=== PATIENT | male | born 1940 | race Two or more races ===

== ENCOUNTER 2020-09-01 07:23 | Outpatient (CLI) | payer OTHER | END 2020-09-01 07:46 | disposition home or self-care (01) | LOC: LAB 07:23 | DX: Z00.01 Encounter for general adult medical examination with abnormal findings (principal); Z68.31 Body mass index [BMI] 31.0-31.9, adult; Z11.3 Encounter for screening for infections with a predominantly sexual mode of transmission; Z11.4 Encounter for screening for human immunodeficiency virus [HIV]; Z12.11 Encounter for screening for malignant neoplasm of colon; Z12.5 Encounter for screening for malignant neoplasm of prostate; Z13.0 Encounter for screening for diseases of the blood and blood-forming organs and certain disorders involving the immune mechanism; Z13.1 Encounter for screening for diabetes mellitus; Z13.220 Encounter for screening for lipoid disorders; Z13.228 Encounter for screening for other metabolic disorders; Z13.29 Encounter for screening for other suspected endocrine disorder; E66.9 Obesity, unspecified; R03.0 Elevated blood-pressure reading, without diagnosis of hypertension; Z23 Encounter for immunization; R10.9 Unspecified abdominal pain; I10 Essential (primary) hypertension; E03.9 Hypothyroidism, unspecified; E55.9 Vitamin D deficiency, unspecified ==

== ENCOUNTER 2020-09-04 07:28 | Outpatient (CLI) | payer OTHER | END 2020-09-04 07:37 | disposition home or self-care (01) | LOC: LAB 07:28 | DX: Z00.01 Encounter for general adult medical examination with abnormal findings (principal); Z68.31 Body mass index [BMI] 31.0-31.9, adult; Z11.3 Encounter for screening for infections with a predominantly sexual mode of transmission; Z11.4 Encounter for screening for human immunodeficiency virus [HIV]; Z12.11 Encounter for screening for malignant neoplasm of colon; Z12.5 Encounter for screening for malignant neoplasm of prostate; Z13.0 Encounter for screening for diseases of the blood and blood-forming organs and certain disorders involving the immune mechanism; Z13.1 Encounter for screening for diabetes mellitus; Z13.220 Encounter for screening for lipoid disorders; Z13.228 Encounter for screening for other metabolic disorders; Z13.29 Encounter for screening for other suspected endocrine disorder; E66.9 Obesity, unspecified; R03.0 Elevated blood-pressure reading, without diagnosis of hypertension; Z23 Encounter for immunization ==

== ENCOUNTER → 2020-09-16 07:11 | Outpatient (CLI) | payer OTHER | END | disposition home or self-care (01) | LOC: LAB 07:11 | PROVIDERS: ATTEND General Practice | DX: E78.2 Mixed hyperlipidemia (principal); Z12.5 Encounter for screening for malignant neoplasm of prostate; Z13.228 Encounter for screening for other metabolic disorders ==

== ENCOUNTER 2020-09-17 09:02 | Outpatient (CLI) | payer OTHER | END 2020-09-17 09:14 | disposition home or self-care (01) | LOC: TOM 09:02 | PROVIDERS: ATTEND General Practice | DX: I10 Essential (primary) hypertension (principal); Z87.891 Personal history of nicotine dependence; Z00.01 Encounter for general adult medical examination with abnormal findings; Z68.33 Body mass index [BMI] 33.0-33.9, adult; Z11.3 Encounter for screening for infections with a predominantly sexual mode of transmission; Z11.4 Encounter for screening for human immunodeficiency virus [HIV] ==